=== PATIENT | male | born 1995 | race Caucasian/White ===

== ENCOUNTER 2017-12-11 12:49 | Emergency (ER) | payer MEDICAID ==
[~2017-12-11] VITALS: Ht 182.9 cm; Wt 77.1 kg
[2017-12-11 13:08] VITALS: BP 111/74
[2017-12-11] MEDS ORDERED: TYLENOL EXTRA500 MG ORAL (13:51)
[2017-12-11] MEDS ORDERED: PROMETHAZI6.25 MG/1 ORAL (13:51)
--- NOTE | 2017-12-11 13:52 | Emergency Room Report ---
History of Present Illness General Chief Complaint: Upper Respiratory Illness Source: Patient Present Illness [facility] 22-year-old male patient presents to ER complaining of sore throat for the past week. Reports history of cough during this time. Reports cough with sputum, denies hemoptysis. Denies fever, chest pain, shortness of breath. Reports history of smoking cigarettes. reports pain with swallowing. Denies other acute symptoms. patient currently living in sober living facility. Allergies: Coded Allergies: CEPHALEXIN (Verified Allergy, Unknown, 12/11/17) SULFA (SULFONAMIDE ANTIBIOTICS) (Verified Allergy, Unknown, 12/11/17) Patient History Past Medical History: see triage record Reviewed Nursing Documentation: PMH: Agreed; PSxH: Agreed Nursing Documentation-PMH Past Medical History: No Stated History Review of Systems All Other Systems: negative except mentioned in HPI Physical Exam Vital Signs Date Time Temp Pulse Resp B/P (MAP) Pulse Ox O2 Delivery O2 Flow Rate FiO2 12/11/17 13:04 98.5 96 18 111/74 96 Room Air 98.4 Sp02 EP Interpretation: reviewed, normal General Appearance: well appearing, no apparent distress, alert, GCS 15, non- toxic Head: normocephalic, atraumatic Eyes: bilateral eye normal inspection, bilateral eye PERRL ENT: hearing grossly normal, normal pharynx, no angioedema, normal voice, TMs + canals normal, uvula midline, moist mucus membranes, tonsillar swelling, other - uvula midline, no stridor, no drooling, no exudates or erythema Neck: full range of motion Respiratory: lungs clear, normal breath sounds, no rhonchi, no respiratory distress, no accessory muscle use, no wheezing, speaking full sentences Cardiovascular #1: regular rate, rhythm, no edema Musculoskeletal: back normal, digits/nails normal, gait/station normal, normal range of motion, non-tender Neurologic: alert, oriented x3, responsive, motor strength/tone normal, sensory intact Psychiatric: mood/affect normal Skin: no rash Lymphatic: no adenopathy Medical Decision Making PA Attestation Dr. Zuniga is my supervising Physician whom patient management has been discussed with. Diagnostic Impression: Primary Impression: Sore throat ER Course Pt presents to ED c/o sore throat. DDX considered but are not limited to pharyngitis, laryngitis, URI, peritonsillar abscess, tonsillitis. Low suspicion for peritonsillar abscess, no neck stiffness, no hot potato voice , no stridor. Does not require imaging at this time. VITAL SIGNS are WNL, patient is afebrile. ER COURSE: Ordered Decadron and viscous lidocaine for patient for symptom relief. No tonsillar exudates, no pharyngeal erythema, no lymphadenopathy, history of cough, afebrile, low suspicion for pharyngitis or tonsillitis. Return to ER in 5-7 days if symptoms worsen to discuss if antibiotic are needed at that time. Stop smoking. Saltwater gargles multiple times per day. follow-up with primary care provider. DISCHARGE: Rx provided for Tylenol Rx provided for promethazine, without codeine. Patient is currently in rehabilitation facility, did not provide patient with opioid medications. At this time pt is stable for d/c to home. Patient is resting comfortably, in no acute distress, nontoxic appearing, talking without difficulty. Will provide with patient care instructions and any necessary prescriptions. Patient to take medication as instructed. Care plan and follow-up instructions provided. Patient questions asked and answered. Patient instructed to follow-up with primary care provider in 3 - 5 days. ER precautions given. Patient instructed to return to ER immediately for any new or worsening of symptoms including but not limited to intractable vomiting, difficulty breathing, inability to eat. - Please note that this Emergency Department Report was dictated using [employer] team member technology software, occasionally this can lead to erroneous entry secondary to interpretation by the dictation equipment. Last Vital Signs Date Time Temp Pulse Resp B/P (MAP) Pulse Ox O2 Delivery O2 Flow Rate FiO2 12/11/17 13:08 96 18 Room Air 12/11/17 13:08 98.4 111/74 96 98.4 Disposition: HOME, SELF-CARE Condition: Stable Scripts Acetaminophen* (TYLENOL EXTRA STRENGTH*) 500 Mg Tablet 500 MG ORAL Q8H PRN for Prn Headache/Temp > 101, #30 TAB 0 Refills Prov: Dean Seth 12/11/17 Promethazine Hcl (PROMETHAZINE HCL*) 6.25 Mg/5 Ml Syrup 5 ML ORAL Q8H, #120 ML 0 Refills Prov: Dean Seth 12/11/17 Patient Instructions: Sore Throat, [id number] Additional Instructions: Followup with primary care provider in 3 -5 days. Salt water gargles Take Tylenol for pain and fever symptoms Drink plenty of water. Take medications as directed. Patient questions asked and answered. ER precautions given, patient instructed to return to ER immediately for any new or worsening of symptoms including but not limited to intractable vomiting, difficulty breathing, inability to eat. Dean Seth Dec 11, 2017 13:52
[2017-12-11] MEDS ORDERED: Lidocaine 2% Visc 15ml soln ORAL ONE (14:00)
[2017-12-11 14:01] VITALS: BP 111/74
== END 2017-12-11 14:03 | disposition home or self-care (01) ==
LOC: EMR 13:50
DX: J02.9 Acute pharyngitis, unspecified (principal)
CPT/HCPCS: 99283